=== PATIENT | female | born 1975 | race Caucasian/White ===

== ENCOUNTER → 2024-06-03 06:36 | Day surgery (SDC) | payer BC, SELFPAY | LOC: GI 06:36 | PROVIDERS: ATTENDING PHYSICIAN Internal Medicine Gastroenterology; FAMILY PHYSICIAN Family Medicine | DX: Z12.11 Encounter for screening for malignant neoplasm of colon (principal); K64.8 Other hemorrhoids | CPT/HCPCS: G0121 ==

== ENCOUNTER 2024-10-16 16:46 | Observation (INO) | payer BC, SELFPAY ==
[2024-10-16 10:20] VITALS: BP 129/77
--- NOTE | 2024-10-16 10:27 | ED.GENMED ---
History of Present Illness
<Aleah Chicas PA-C - Last Filed: 10/16/24 17:43>
General
Chief Complaint: Dizziness
Source: patient
Exam Limitations: none
Time Seen by Provider: 10/16/24 10:26
Nursing documentation reviewed up to this point in time: agreed with
History of Present Illness
History of Present Illness:
This is a 49-year-old female with past medical history of hyperlipidemia, and Zepbound for weight loss presents emergency department today with concerns of multiple presyncopal episodes and left-sided abdominal pain for the past week. Patient
states that she works at the [employer] in town and was walking up the hill to go to work today when she got a onset of lightheadedness, feeling flushed, and feeling like she is going to fall faint. Patient went inside to work and sat down at her
desk, thinking the symptoms would resolve however she states that the symptoms persisted and she had intermittent episodes where she felt like she has been a coffee. She never actually syncopized. She did not fall and hit her head. She denies any
headache or neck pain. Denies any numbness or tingling of bilateral upper or lower extremities. Denies any fevers or chills. She states that she has had some shortness of breath during the lightheadedness episode but currently is not short of
breath. She denies palpitations. Denies pack pain. She has no past abdominal surgical history. She denies any burning with urination any blood in her stools any diarrhea, any constipation. She denies any changes to her appetite.
Past History
<Aleah Chicas PA-C - Last Filed: 10/16/24 17:43>
Past History
ED Past Medical History: None
ED Past Surgical History: None
Social History
Tobacco: Non-smoker
Alcohol: None
Drug: None
Personal:
Living: with family
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
Family History
Family History: Other (Noncontributory)
Review of Systems
<Aleah Chicas PA-C - Last Filed: 10/16/24 17:43>
Review of Systems
All Other Systems: ROS reviewed and negative except as documented in HPI and ROS
Phy Exam
<Aleah Chicas PA-C - Last Filed: 10/16/24 17:43>
Physical Exam
Physical Exam:
General: Patient is well appearing and in no acute distress; non-toxic
Skin: Warm and dry, no rashes or lesions
Head: Normocephalic, atraumatic
Eyes: Sclera non-icteric. EOMs intact.
Cardiac: Tachycardia otherwise regular rhythm, no murmurs
Peripheral Vascular: No lower extremity swelling or edema
Pulm: Normal respiratory effort, no wheezes, rales, rhonchi
Abdomen: Tenderness to palpation of the left lower quadrant with guarding no rebound tenderness to palpable abdominal masses
Neuro: CN II-XII intact, no focal neurologic deficits.
Psychiatric: Appropriate mood and affect.
Course
<Aleah Chicas PA-C - Last Filed: 10/16/24 17:43>
Orders/Labs/Results
Orders:
Orders
10/16/24 09:41
Electrocardiogram (*1) Urgent
Reason for Study: Vertigo / Dizzy
EKG- Treatment ONCE
10/16/24 Lunch
Clear Liquid
10/16/24 10:45
CT Abd/pelvis W Iv Cont Urgent
Comment:
Reason For Exam: LLQ pain
Test Result ONCE
10/16/24 11:00
Cardiac Monitoring- Treatment ONCE
10/16/24 11:01
IV Insert/Care/Rem.- Treatment PRN
10/16/24 11:17
Type+Screen Urgent
Complete Blood Count/With Diff Urgent
Comprehensive Metabolic Panel Urgent
D-Dimer Urgent
HCG, Serum Qualitative Screen Urgent
Comment: ADD
Lipase Urgent
, Urine Qualitative Screen [HCG, Urine Qualitative Screen] Urgent
Date Specimen was Collected: 10/16/24
Time Specimen was Collected: 11:07
Urinalysis Reflex To Culture Urgent
Date Specimen was Collected: 10/16/24
Time Specimen was Collected: 11:08
10/16/24 11:22
0.9% Sodium Chloride 1000 ml [Nss] 1,000 ml IV BOLUS
10/16/24 11:38
ABO2 Urgent
BBK Wristband Number:
Associate notified that ABO2 has been ordered: [id number]
Date: 10/16/24
Time: 11:26
Monitor Car Operator ID: [id number]
10/16/24 12:04
Add On- LAB Urgent
Tests Added?: hcg qual blood
10/16/24 15:02
Ketorolac [Toradol] 15 mg IV NOW STA
10/16/24 15:15
Ampicillin/Sulbactam 3 G [Unasyn] 3 gm 0.9% Sodium Chloride 100 ml [Nss] 100 ml IV NOW
10/16/24 15:57
Echo 2D MMode Color/Doppler [Echo 2D MMode Color/Doppler] Routine
Reason for Study: recurrent pre-syncope
10/16/24 16:33
Admit/Transfer Patient As Directed
Co-Sign Provider:
Level of Care: Observation services
Assign to:: Telemetry
Physician / Group: Chelly meza
Diagnosis: pre-syncope
Reason for Telemetry: Syncope
Date to Stop Telemetry: 10/18/24
Time to Stop Telemetry: 11:00
PRN Pain Medication Management As Directed
May give lesser potent ordered pain med per pt: Yes
preference::
Protocol:: Medication orders for pain may be administered in a
manner that supports deferring to patient preference
when the pt is:
- Requesting an ordered lesser potent pain medication.
Least to most potent pain medications are defined
as: acetaminophen < NSAID < tramadol < opioids
(morphine, oxycodone, hydromorphone).
- Requesting a lesser dose of the same medication IF
ORDERED.
- Requesting a less intrusive route of administration
if both routes are prescribed by the provider (PO <
IV).
10/16/24 16:35
Code Status As Directed
Resuscitation Status: Full Code
10/18/24 11:00
DC Protocol for Telemetry ONCE
Abnormal Lab Results
10/16/24
11:17
WBC 13.0 H 10^3/uL
(4.8-10.8)
MPV 10.5 H fL
(7.4-10.4)
Absolute Neuts (auto) 10.8 H 10^3/uL
(1.4-6.5)
Absolute Monos (auto) 0.9 H 10^3/uL
(0.1-0.6)
Neutrophils % 82.9 H %
(42.2-75.2)
Lymphocytes % 8.9 L %
(20.5-51.1)
Glucose 100 H mg/dl
(70-99)
Urine Ketones 1+ A
(Negative)
10/16/24 11:17
10/16/24 11:17
Vital Signs
Initial and Last Documented VS:
Initial Vital Signs
Temp Pulse Resp Pulse Ox
97.5 F 97 20 100
10/16/24 09:41 10/16/24 09:41 10/16/24 09:41 10/16/24 09:41
Last Documented Vital Signs
Temp Pulse Resp BP Pulse Ox
97.5 F 96 21 117/68 99
10/16/24 09:41 10/16/24 14:30 10/16/24 14:30 10/16/24 13:00 10/16/24 14:30
<Kendall Traore MD - Last Filed: 10/16/24 11:08>
Orders/Labs/Results
Orders:
Orders
10/16/24 09:41
Electrocardiogram (*1) Urgent
Reason for Study: Vertigo / Dizzy
EKG- Treatment ONCE
10/16/24 Lunch
Clear Liquid
10/16/24 10:45
CT Abd/pelvis W Iv Cont Urgent
Comment:
Reason For Exam: LLQ pain
Test Result ONCE
10/16/24 11:00
Cardiac Monitoring- Treatment ONCE
10/16/24 11:01
IV Insert/Care/Rem.- Treatment PRN
10/16/24 11:17
Type+Screen Urgent
Complete Blood Count/With Diff Urgent
Comprehensive Metabolic Panel Urgent
D-Dimer Urgent
HCG, Serum Qualitative Screen Urgent
Comment: ADD
Lipase Urgent
, Urine Qualitative Screen [HCG, Urine Qualitative Screen] Urgent
Date Specimen was Collected: 10/16/24
Time Specimen was Collected: 11:07
Urinalysis Reflex To Culture Urgent
Date Specimen was Collected: 10/16/24
Time Specimen was Collected: 11:08
10/16/24 11:22
0.9% Sodium Chloride 1000 ml [Nss] 1,000 ml IV BOLUS
10/16/24 11:38
ABO2 Urgent
BBK Wristband Number:
Associate notified that ABO2 has been ordered: [id number]
Date: 10/16/24
Time: 11:26
Monitor Car Operator ID: [id number]
10/16/24 12:04
Add On- LAB Urgent
Tests Added?: hcg qual blood
10/16/24 15:02
Ketorolac [Toradol] 15 mg IV NOW STA
10/16/24 15:15
Ampicillin/Sulbactam 3 G [Unasyn] 3 gm 0.9% Sodium Chloride 100 ml [Nss] 100 ml IV NOW
10/16/24 15:57
Echo 2D MMode Color/Doppler [Echo 2D MMode Color/Doppler] Routine
Reason for Study: recurrent pre-syncope
10/16/24 16:33
Admit/Transfer Patient As Directed
Co-Sign Provider:
Level of Care: Observation services
Assign to:: Telemetry
Physician / Group: Chelly Pickens derrick
Diagnosis: pre-syncope
Reason for Telemetry: Syncope
Date to Stop Telemetry: 10/18/24
Time to Stop Telemetry: 11:00
PRN Pain Medication Management As Directed
May give lesser potent ordered pain med per pt: Yes
preference::
Protocol:: Medication orders for pain may be administered in a
manner that supports deferring to patient preference
when the pt is:
- Requesting an ordered lesser potent pain medication.
Least to most potent pain medications are defined
as: acetaminophen < NSAID < tramadol < opioids
(morphine, oxycodone, hydromorphone).
- Requesting a lesser dose of the same medication IF
ORDERED.
- Requesting a less intrusive route of administration
if both routes are prescribed by the provider (PO <
IV).
10/16/24 16:35
Code Status As Directed
Resuscitation Status: Full Code
10/18/24 11:00
DC Protocol for Telemetry ONCE
Abnormal Lab Results
10/16/24
11:17
WBC 13.0 H 10^3/uL
(4.8-10.8)
MPV 10.5 H fL
(7.4-10.4)
Absolute Neuts (auto) 10.8 H 10^3/uL
(1.4-6.5)
Absolute Monos (auto) 0.9 H 10^3/uL
(0.1-0.6)
Neutrophils % 82.9 H %
(42.2-75.2)
Lymphocytes % 8.9 L %
(20.5-51.1)
Glucose 100 H mg/dl
(70-99)
Urine Ketones 1+ A
(Negative)
10/16/24 11:17
10/16/24 11:17
Vital Signs
Initial and Last Documented VS:
Initial Vital Signs
Temp Pulse Resp Pulse Ox
97.5 F 97 20 100
10/16/24 09:41 10/16/24 09:41 10/16/24 09:41 10/16/24 09:41
Last Documented Vital Signs
Temp Pulse Resp BP Pulse Ox
97.5 F 96 21 117/68 99
10/16/24 09:41 10/16/24 14:30 10/16/24 14:30 10/16/24 13:00 10/16/24 14:30
Adamlt;Aleah Chicas PA-C - Last Filed: 10/16/24 17:43>
MDM/Problems Addressed
Differential Diagnosis Includes:
ddx include vasovagal syncope, PE, ectopic , diverticulitis, dysrhythmia, electrolyte derangement
MDM/Problems Addressed:
This is a 49-year-old female with past medical history of hyperlipidemia, and Zepbound for weight loss presents emergency department today with concerns of multiple presyncopal episodes and left-sided abdominal pain for the past week. Patient was
found to have diverticulitis. Patient did not have pain at the time of the presyncopal episodes and multiple episodes occurred even at rest. Considering no clear etiology or trigger to these episodes, admit patient for observation overnight.
Discussed with hospitalist.
Chronic conditions affecting care:
hlp, htn
<Aleah Chicas PA-C - Last Filed: 10/16/24 17:43>
*Pulse Oximetry
Patient hypoxic: no
*EKG
Interpreted by ED Provider?: Yes
EKG Intrepretation Date: 10/16/24
Interpretation: abnormal
Heart Rate: 101
*Critical Care Note
Total Time (30-74mins, 75-104mins- exclusive of procedures): Not Applicable
ED Attending Note
<Aleah Chicas PA-C - Last Filed: 10/16/24 17:43>
-
Portions of this chart may have been created with voice recognition software.� Occasional wrong word or��sound alike� substitutions may have occurred due to the inherent limitations of voice recognition software.
<Kendall Traore MD - Last Filed: 10/16/24 11:08>
ED Attending Note
Patient seen and examined by attending physician: Yes
I performed the substantive portion of visit, reviewed & personally made and approve the management plan that is documented in note by myself or LIVIA.: Yes
ED Attending Note:
49-year-old female multiple episodes of near syncope going to work today. No abdominal pain at that time. She has had 2 to 3 days of abdominal pain however mostly left-sided. Or left lower quadrant. She still has pain on palpation but no obvious
pain at rest. Has had a regular menses for a while. Last period was the end of August. Denies urinary symptoms change in bowels or other complaints.
On exam patient is nontoxic warm and dry perfusing well.
No respiratory distress. Heart borderline tachycardic. Regular. No murmur. Abdomen soft but moderate tenderness left lower quadrant. No rebound or guarding no mass or hernia. Nonfocal
Large differential with recurrent near syncope and left lower quadrant pain. Considerations would be ectopic, ruptured cyst, recurrent vasovagal syncope although less likely.
Discharge Plan
Departure
Patient Disposition: Admit
Date of Disposition: 10/16/24
Time of Disposition: 15:12
Admit to: Med/Surg
Presentation/result/management discussed w/ accepting MD/DO: Hospitalist
Discharge Problem:
Pre-syncope, Diverticulitis
Interventions
Interventions:
*Risk Screen - Suicide Last Done: 10/16/24 09:41
*General Assessment Last Done: 10/16/24 09:41
*Neglect/Abuse Screening Last Done: 10/16/24 09:41
*ED COVID-19 Vaccine History Last Done: 10/16/24 14:01
ED- Neurological Assessment Last Done: 10/16/24 14:02
[2024-10-16 11:15] VITALS: BP 141/81
[2024-10-16] MEDS: NSS 1000 IV ×2 (11:22→22:14)
[2024-10-16 11:28] LABS: % Basophils 0.6 % (0-2); % Eosinophils 0.3 % (0-6); % Immature Granulocytes 0.2 % (0-0.5); % Lymphocytes 8.9 % (20.5-51.1); % Monocytes 7.1 % (1.7-9.3); % Neutrophils 82.9 % (42.2-75.2); Absolute Basophils 0.1 10^3/uL (0-0.2); Absolute Lymphocytes 1.2 10^3/uL (1.2-3.4); Absolute Monocytes 0.9 10^3/uL (0.1-0.6); Absolute Neutrophils 10.8 10^3/uL (1.4-6.5); Hematocrit 42.2 % (37.0-47.0); Hemoglobin 14.6 g/dL (12.0-16.0); Mean Corp Hgb Conc. 34.6 g/dL (33.0-37.0); Mean Corpuscular Hgb 29.3 pg (27.0-31.0); Mean Corpuscular Volume 84.6 fL (81.0-99.0); Mean Platelet Volume 10.5 fL (7.4-10.4); Nucleated Red Blood Cells % 0 %; Platelet Count 285 10^3/uL (130-400); Red Blood Cell Count 4.99 10^6/uL (4.20-5.40); Red Cell Dist. Width 11.9 % (11.5-14.5)
[2024-10-16 11:30] LABS: Urine Albumin Negative (Neg - Trace); Urine Bilirubin Negative (Negative); Urine Character Clear (Clear); Urine Glucose Negative (Negative); Urine Ketone 1+ (Negative); Urine Leukocyte Negative (Negative); Urine Nitrite Negative (Negative); Urine Occult Blood Negative (Negative); Urine Urobilinogen Negative (Neg - 1+)
[2024-10-16 11:31] LABS: Urine Color Straw
[2024-10-16 11:36] LABS: HCG, Urine Qualitative Screen Negative
[2024-10-16 11:43] LABS: ALT (SGPT) 21 U/L (0-35); AST (SGOT) 23 U/L (14-36); Albumin 4.7 g/dl (3.5-5.0); Alkaline Phosphatase 69 U/L (38-126); Blood Urea Nitrogen 11 mg/dl (7-17); Calcium 9.2 mg/dl (8.4-10.2); Carbon Dioxide 28 mmol/L (22-30); Chloride 104 mmol/L (98-107); Glucose 100 mg/dl (70-99); Lipase 107 U/L (23-300); Potassium 4.2 mmol/L (3.5-5.1); Sodium 143 mmol/L (135-145); Total Bilirubin 0.7 mg/dl (0.2-1.3); Total Protein 7.7 g/dl (6.3-8.2); eGFR > 60.00
[2024-10-16 11:47] LABS: D-Dimer 0.37 ug/mlFEU (0.00-0.50)
[2024-10-16 12:00] VITALS: BP 117/71
[2024-10-16 12:55] LABS: HCG, Serum Qualitative Screen Negative
[2024-10-16 13:00] VITALS: BP 117/68
[2024-10-16 13:44] VITALS: BMI 32.5
--- NOTE | 2024-10-16 16:23 | HPS.HSE ---
Family Physician
-
Family Physician: Saroj Mata
Chief Complaint
-
abd pain, pre-syncope
History of Present Illness
49 y/o F with hx of HLD presents to ER with pre-syncope events x 2. Patient works at [employer] and today felt lightheaded when walking up the inclined ramp. She stopped, rested and it got better. Later when standing from a chair, she also felt
lightheadedness and had a sensation of nearly passing out. Neither episode was associated with palpitations, chest pain or sob. She does endorse 1 week of LLQ pain without any GI bleed, nausea/vomiting or diarhea (last BM today, normal). in ER, her
EKG showed sinus tachycardia and labs were normal, CT showed acute diverticulitis. Patient was admitted for observation.
Medical History
Past Medical History
Past Medical History: Reports Hypercholesterolemia
Past Surgical History: Reports None
Social History
Tobacco: Non-smoker
Alcohol: Occasional
Drug: None
Personal:
Living: With Family
Employment: Employed
Family History
Family History: Not pertinent
Allergies / Home Medications
Allergies reflects when Allergies were last updated in [facility].
Home Medications with original date entered in [facility]
Allergy/Medication List:
Allergies
Allergy/AdvReac Type Severity Reaction Status Date / Time
dextromethorphan Allergy Unknown modulRmelva and Verified 10/16/24 09:45
[From Mucinex DM] skin felt
like it
was on
fire.
guaifenesin [From Mucinex DM] Allergy Unknown [facility] and Verified 10/16/24 09:45
skin felt
like it
was on
fire.
levofloxacin [From Levaquin] Allergy Unknown muscle pain Verified 10/16/24 09:45
Home Medications
rosuvastatin 10 mg tablet (Crestor) 10 mg PO QPM 10/16/24
tirzepatide (weight loss) 5 mg/0.5 mL subcutaneous pen injector (Zepbound) 5 mg SC RUFFIN 10/16/24
Review of Systems
-
A 12 point ROS was completed and negative except as noted: Yes
Physical Exam
Vital Signs
Vital Signs
Temp Pulse Resp BP Pulse Ox
97.5 F 96 21 117/68 99
10/16/24 09:41 10/16/24 14:30 10/16/24 14:30 10/16/24 13:00 10/16/24 14:30
Physical Exam
General: No Apparent Distress
HEENT: NormoCephalic and Anicteric
Respiratory: No Wheezes or Rales
Cardiac: S1/S2 and Regular Rhythm
GI: Soft, Non Distended and Tender (LLQ)
Neuro: AO x 3
Hematologic/Lymphatic: No Lymphadenopathy
Psych: Calm
Laboratory Results
-
10/16/24 11:17
10/16/24 11:17
Laboratory Results
Total Bilirubin 0.7 mg/dl (0.2-1.3) 10/16/24 11:17
AST 23 U/L (14-36) 10/16/24 11:17
ALT 21 U/L (0-35) 10/16/24 11:17
Alkaline Phosphatase 69 U/L (38-126) 10/16/24 11:17
Lipase 107 U/L (23-300) 10/16/24 11:17
Data Reviewed
-
CT Scan: Report Reviewed by me
Lab Data: Labs Reviewed by me
Impression/Plan
-
Assessment:
Pre-syncope x 2
- with concurrent diverticulitis, likely vagal mediated, could also be orthostatic hypotension
- check orthostatics
- check Echo; does have family history of early CAD
- monitor on tele x 24 hours
Acute diverticulitis
- CT: There is focal stranding and edema along the distal descending/proximal sigmoid colon consistent with uncomplicated acute diverticulitis/colitis.
- IV Unasyn, day 1
- clears
- pain control, anti-emetics
HLD
Obesity
- hold Statin, hold Zepbound
DVT ppx: SCDs
Code: Full
[2024-10-16] MEDS: UNASYN IV ×2 (16:31→22:13)
[2024-10-16] MEDS: TORADOL 15 MG IV (16:31)
[2024-10-16 21:06] VITALS: BMI 29.4
[2024-10-16 21:25] VITALS: BP 130/82
[2024-10-17 00:03] VITALS: BP 121/76
[2024-10-17 03:26] VITALS: BP 128/76
[2024-10-17] MEDS: TORADOL 10 MG IV (03:39)
[2024-10-17] MEDS: UNASYN IV ×2 (03:40→09:59)
[2024-10-17 06:54] VITALS: BMI 29.3
[2024-10-17 07:15] VITALS: BP 117/66
[2024-10-17 07:31] LABS: % Basophils 0.7 % (0-2); % Eosinophils 1.8 % (0-6); % Immature Granulocytes 0.3 % (0-0.5); % Lymphocytes 23.3 % (20.5-51.1); % Monocytes 9.1 % (1.7-9.3); % Neutrophils 64.8 % (42.2-75.2); Absolute Basophils 0.1 10^3/uL (0-0.2); Absolute Eosinophils 0.1 10^3/uL (0-0.7); Absolute Lymphocytes 1.7 10^3/uL (1.2-3.4); Absolute Monocytes 0.6 10^3/uL (0.1-0.6); Absolute Neutrophils 4.6 10^3/uL (1.4-6.5); Hematocrit 39.7 % (37.0-47.0); Hemoglobin 13.5 g/dL (12.0-16.0); Mean Corpuscular Hgb 29.2 pg (27.0-31.0); Mean Corpuscular Volume 85.7 fL (81.0-99.0); Mean Platelet Volume 10.6 fL (7.4-10.4); Nucleated Red Blood Cells % 0 %; Platelet Count 262 10^3/uL (130-400); Red Blood Cell Count 4.63 10^6/uL (4.20-5.40); Red Cell Dist. Width 12.1 % (11.5-14.5); White Blood Cell Count 7.1 10^3/uL (4.8-10.8)
[2024-10-17 08:04] LABS: ALT (SGPT) 17 U/L (0-35); AST (SGOT) 20 U/L (14-36); Alkaline Phosphatase 62 U/L (38-126); Blood Urea Nitrogen 9 mg/dl (7-17); Calcium 8.1 mg/dl (8.4-10.2); Carbon Dioxide 26 mmol/L (22-30); Chloride 106 mmol/L (98-107); Estimated Creatinine Clearance > 125 ml/min; Glucose 89 mg/dl (70-99); Potassium 3.8 mmol/L (3.5-5.1); Sodium 140 mmol/L (135-145); Total Bilirubin 0.8 mg/dl (0.2-1.3); Total Protein 6.7 g/dl (6.3-8.2); eGFR > 60.00
[2024-10-17 11:10] VITALS: BP 113/74
[2024-10-17 11:41] VITALS: BP 137/81; BP 153/80; BP 153/82; PULSE 81; PULSE 84
--- NOTE | 2024-10-17 11:54 | W.PN.HOSP.TC ---
Today's Communication/Plan
-
dc to home
Assessment / Plan
Assessment / Plan
Assessment:
Pre-syncope x 2
- with concurrent diverticulitis, likely vagal mediated, could also be orthostatic hypotension
- orthostatics negative
- Echo: unremarkable. No events on tele
Acute diverticulitis
- CT: There is focal stranding and edema along the distal descending/proximal sigmoid colon consistent with uncomplicated acute diverticulitis/colitis.
- discharge on Augmentin x 10 days
- LRD at discharge (education provided)
HLD
Obesity
- resume Statin, hold Zepbound
DVT ppx: SCDs
Code: Full
More than 30 minutes spent in discharge including
Final examination of the patient
Summarizing hospital stay
Instructions for continuing care to all relevant caregivers
Preparation of discharge records, prescriptions, and referral forms
Total time spent (in minutes): 41
Anticipated Discharge: Today
Subjective/Interval History
-
Date of Service: October 17, 2024
pain improving
tolerating CLD
Objective Data
-
Labs:
Laboratory Results
10/17/24
07:10
WBC 7.1
Hgb 13.5
Hct 39.7
Plt Count 262
Sodium 140
Potassium 3.8
Chloride 106
Carbon Dioxide 26
BUN 9
Creatinine 0.5 L
Glucose 89
Calcium 8.1 L
Total Bilirubin 0.8
AST 20
ALT 17
Alkaline Phosphatase 62
Vital Signs:
Vital Signs
Temp Pulse Resp BP Pulse Ox
98.6 F 83 17 113/74 98
10/17/24 11:10 10/17/24 11:10 10/17/24 11:10 10/17/24 11:10 10/17/24 11:10
I&O
10/16/24 10/17/24 10/18/24
06:59 06:59 06:59
Intake Total 1000 / 1000
Balance 1000 / 1000
Physical Exam
-
General: No Apparent Distress
HEENT: Normocephalic and Atraumatic
Respiratory: Negative Wheezes
Cardiac: Regular Rhythm and S1/S2
Genito-urinary: No Costovertebral Tender
Neuro: AO x 3
Psych: Calm
Data Reviewed
-
Total Time Spent with Patient (in minutes): 42
Labs: Labs Reviewed by me
--- NOTE | 2024-10-17 11:59 | W.DS.TRANS ---
DC Summary - [facility]ring Tender
-
Discharge Instructions:
Discharge Diagnosis/Procedures acute diverticulitis, pre-syncope
Diet Low Residue
Additional Diets x 1 week then regular diet
Activity As tolerated
Instructions:
Stand-Alone Forms:
Changes to Home Medications: No
Discharge Medications:
DC Medications w/original date entered in [facility]
rosuvastatin 10 mg tablet (Crestor) 10 mg PO QPM High Cholesterol 10/16/24
amoxicillin 875 mg-potassium clavulanate 125 mg tablet 1 tab PO BID #20 tabs 10/17/24
polyethylene glycol 3350 17 gram oral powder packet 17 g PO DAILY #30 ea 10/17/24
Home Medication Changes
Pending Results: No
Total time spent discharging patient (in min): 41
== END 2024-10-17 13:53 | disposition home or self-care (01) ==
LOC: 3 WEST ACU 16:46
PROVIDERS: Physician Assistant; ADMITTING PHYSICIAN Internal Medicine; EMERGENCY PHYSICIAN Emergency Medicine; FAMILY PHYSICIAN Family Medicine
DX: R42 Dizziness and giddiness (principal); K57.32 Diverticulitis of large intestine without perforation or abscess without bleeding; R23.2 Flushing; R55 Syncope and collapse; R10.32 Left lower quadrant pain; R00.0 Tachycardia, unspecified; R60.9 Edema, unspecified; E78.00 Pure hypercholesterolemia, unspecified; E66.9 Obesity, unspecified; I10 Essential (primary) hypertension; Z88.1 Allergy status to other antibiotic agents; Z88.8 Allergy status to other drugs, medicaments and biological substances; Z82.49 Family history of ischemic heart disease and other diseases of the circulatory system; Z68.29 Body mass index [BMI] 29.0-29.9, adult; Z79.85 Long-term (current) use of injectable non-insulin antidiabetic drugs
CPT/HCPCS: 74177; 80053; 81003; 81025; 83690; 84703; 85025; 85379; 86850; 86900; 86901; 93005; 93306; 96361; 96365; 96375; 99285; G0378; Q9967

== ENCOUNTER → 2024-11-18 17:19 | Outpatient (REF) | payer BC, SELFPAY | LOC: RAD 17:19 | PROVIDERS: ATTENDING PHYSICIAN Family Medicine | DX: R05.1 Acute cough (principal) | CPT/HCPCS: 71046 ==

== ENCOUNTER 2024-11-19 17:50 | Inpatient (IN) | payer BC, SELFPAY ==
[2024-11-19] VITALS (9 sets, daily range): BP systolic 108–147; BP diastolic 65–90; BMI 26.8; BMI 27.5
[2024-11-19 12:36] LABS: Blood Urea Nitrogen 8 mg/dl (7-17); Calcium 8.9 mg/dl (8.4-10.2); Carbon Dioxide 29 mmol/L (22-30); Chloride 98 mmol/L (98-107); Estimated Creatinine Clearance 109 ml/min; Glucose 115 mg/dl (70-99); Magnesium 2.2 mg/dl (1.6-2.3); Potassium 3.8 mmol/L (3.5-5.1); Sodium 139 mmol/L (135-145); eGFR > 60.00
[2024-11-19] MEDS: TESSALON PERLES 200 MG PO (12:47)
[2024-11-19] MEDS: TORADOL 15 MG IV (12:47)
[2024-11-19] MEDS: DUONEB 3 ML INH (12:48)
[2024-11-19] MEDS: NSS 1000 IV (12:48)
[2024-11-19 12:50] LABS: D-Dimer 0.63 ug/mlFEU (0.00-0.50)
--- NOTE | 2024-11-19 12:59 | ED.GENMED ---
History of Present Illness
General
Chief Complaint: Breathing Problem
Source: patient
Exam Limitations: none
Time Seen by Provider: 11/19/24 11:05
Nursing documentation reviewed up to this point in time: agreed with
History of Present Illness
History of Present Illness:
Patient presents to ED secondary to 5-day history of persistent cough, shortness of breath, and decreased appetite. Patient was started on Zithromax last night, after chest x-ray revealed likely pneumonia. Denies chest pain. Denies back pain.
Denies leg pain or swelling. Denies recent travel or surgery. Denies nausea, vomiting, or diarrhea. Denies headache. Patient reports fever, which now has resolved over the past 24 hours. Patient states that in 2018, she had similar episode,
when she was admitted and treated for pneumonia. Patient reports multiple COVID testing at home that were negative.
Past History
Past History
ED Past Medical History: None
ED Past Surgical History: None
Social History
Tobacco: Non-smoker
Alcohol: None
Drug: None
Personal:
Living: with family
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
Family History
Family History: Other (Noncontributory)
Review of Systems
Review of Systems
Allergies reviewed?: Yes
All Other Systems: ROS reviewed and negative except as documented in HPI and ROS
Constitutional: Reports no symptoms
Respiratory: Reports cough and trouble breathing
Cardiac: Reports no symptoms
ABD/GI: Reports no symptoms; Denies vomiting or diarrhea
Musculoskeletal: Reports no symptoms
Skin: Reports no symptoms
Neurological: Reports weakness; Denies dizzy or headache
Phy Exam
Physical Exam
Physical Exam:
Physical Exam
General: no apparent distress, not acutely ill. afebrile
Head: nc/at. eomi
Neck: supple. no meningeal signs. normal posterior pharynx
Heart: s1/s2 regular rate and rhythm, no murmur.
Lungs: no acute respiratory distress. rhonchi bilaterally
Abdomen: normal bowel sounds. not tender.
Neuro: alert and oriented x 3. no focal neurological deficits
Skin: no rash
Psychiatric: well kept. interactive and cooperative
Extremities: no edema. no calf tenderness.
Scores
Heart Failure Risk
Heart Failure Risk Score: Not Applicable
Course
Orders/Labs/Results
Orders:
Orders
11/19/24 12:02
Basic Metabolic Panel Urgent
Complete Blood Count/With Diff Urgent
D-Dimer Urgent
HCG, Serum Qualitative Screen Urgent
Magnesium Urgent
Manual Differential Urgent
11/19/24 12:36
0.9% Sodium Chloride 1000 ml [Nss] 1,000 ml IV BOLUS
Ipratropium/Albuterol Sulfate [Duoneb] 3 ml INH R NOW STA
Ketorolac [Toradol] 15 mg IV NOW STA
11/19/24 12:37
Benzonatate [Tessalon Perles] 200 mg PO NOW STA
11/19/24 14:08
CT Chest PE Study Urgent
Comment:
Reason For Exam: sob w elevated d-dimer
11/19/24 Dinner
Cholesterol Lowering
At Your Request: Full Participation
Cholesterol Lowering: Sodium, 2 Gram
11/19/24 15:36
CefTRIAXone [Rocephin] 1,000 mg IV NOW STA
11/19/24 16:14
Azithromycin [Zithromax] 250 mg 0.9% Sodium Chloride 250 ml [Nss] 250 ml IV NOW
Sterile Water [Sterile Water For Injection] 10 ml .ROUTE .[facility]
11/19/24 17:06
COVID-19 Antigen Routine
Source: Nasal Swab
Influenza A+B Rapid Molecular Routine
ANANYA Source: Nasal Swab
Specimen Description:
11/19/24 17:34
Admit/Transfer Patient As Directed
Co-Sign Provider:
Level of Care: Inpatient admission
Assign to:: Medical/Surgical
Physician / Group: Yimi Krishna
Diagnosis: pneumonia
Reason for Hospitalization: pneumonia
Expected length of stay greater than two midnights?: Yes
ELOS- Estimated Length of Stay in days: 2
I certify the patient meets the requirements for IP care: Yes
11/19/24 17:35
PRN Pain Medication Management As Directed
May give lesser potent ordered pain med per pt: Yes
preference::
Protocol:: Medication orders for pain may be administered in a
manner that supports deferring to patient preference
when the pt is:
- Requesting an ordered lesser potent pain medication.
Least to most potent pain medications are defined
as: acetaminophen < NSAID < tramadol < opioids
(morphine, oxycodone, hydromorphone).
- Requesting a lesser dose of the same medication IF
ORDERED.
- Requesting a less intrusive route of administration
if both routes are prescribed by the provider (PO <
IV).
11/19/24 17:36
Code Status As Directed
Resuscitation Status: Full Code
11/19/24 18:34
Benzonatate [Tessalon Perles] 200 mg PO TIDPRN PRN
Ipratropium/Albuterol Sulfate [Duoneb] 3 ml INH R Q4HPRN PRN
Ondansetron Injectable [Zofran] 4 mg IV Q6HPRN PRN
11/19/24 18:34
Respiratory Culture/Gram Stain Urgent
ANANYA Source: Sputum
Specimen Description:
Activity As Directed
Activity Level: Out of Bed-Early Mobility
Intake/ Output As Directed
Frequency: Per unit guidelines
Vital Signs As Directed
Frequency: Per unit guidelines
Weight As Directed
Frequency: Once
Comment: on admission
DX Deep Vein Thrombosis Video Routine
11/20/24 05:19
Complete Blood Count/No Diff IN AM
11/20/24 08:00
Saccharomyces Boulardii [Florastor] 500 mg PO DAILY
11/20/24 12:00
Rosuvastatin Calcium [Crestor] 10 mg PO NOON
11/20/24 16:00
Azithromycin 500 mg/250 ml [Zithromax Infusion] 500 mg in 250 ml IV Q24H
CefTRIAXone [Rocephin] 1,000 mg IV Q24H
11/20/24 18:00
Enoxaparin Sodium [Lovenox] 40 mg SC QPM
Abnormal Lab Results
11/19/24
12:02
Lymphocytes (Manual) 11 L %
(20-51)
Monocytes (Manual) 13 H %
(2-9)
D-Dimer 0.63 H ug/mlFEU
(0.00-0.50)
Glucose 115 H mg/dl
(70-99)
11/19/24 12:02
11/19/24 12:02
Vital Signs
Initial and Last Documented VS:
Initial Vital Signs
Temp Pulse Resp BP Pulse Ox
98.4 F 110 18 147/90 96
11/19/24 10:10 11/19/24 10:10 11/19/24 10:10 11/19/24 10:10 11/19/24 10:10
Last Documented Vital Signs
Temp Pulse Resp BP Pulse Ox
98.9 F 92 16 113/75 96
11/20/24 15:39 11/20/24 15:39 11/20/24 15:39 11/20/24 15:39 11/20/24 15:39
MDM/Problems Addressed
MDM/Problems Addressed:
D-dimer elevated. Will CTA PE study and reassess afterwards
*Critical Care Note
Total Time (30-74mins, 75-104mins- exclusive of procedures): Not Applicable
ED Attending Note
-
Portions of this chart may have been created with voice recognition software.� Occasional wrong word or��sound alike� substitutions may have occurred due to the inherent limitations of voice recognition software.
Discharge Plan
Departure
Patient Disposition: Admit
Date of Disposition: 11/19/24
Time of Disposition: 15:38
Presentation/result/management discussed w/ accepting MD/DO: Hospitalist
Discharge Problem:
Pneumonia
Interventions
Interventions:
*Risk Screen - Suicide Last Done: 11/19/24 10:10
*General Assessment Last Done: 11/19/24 10:10
*Neglect/Abuse Screening Last Done: 11/19/24 10:10
*ED COVID-19 Vaccine History Last Done: 11/19/24 18:36
*Nursing Disposition Last Done: 11/19/24 18:45
ED- Cardiac Assessment Last Done: 11/19/24 13:20
ED- Pulmonary Assessment Last Done: 11/19/24 13:20
Discharge Date and Time
Discharge Date/Time: 11/19/24 18:45
[2024-11-19 13:02] LABS: Band Neutrophils 1 % (0-3); Eosinophils 2 % (0-6); Hematocrit 41.8 % (37.0-47.0); Hemoglobin 14.7 g/dL (12.0-16.0); Lymphocytes 11 % (20-51); Mean Corp Hgb Conc. 35.2 g/dL (33.0-37.0); Mean Corpuscular Hgb 29.6 pg (27.0-31.0); Mean Corpuscular Volume 84.3 fL (81.0-99.0); Mean Platelet Volume 10.4 fL (7.4-10.4); Monocytes 13 % (2-9); Platelet Count 211 10^3/uL (130-400); Red Blood Cell Count 4.96 10^6/uL (4.20-5.40); Red Cell Dist. Width 12.7 % (11.5-14.5); Segmented Neutrophils 73 % (42-75); White Blood Cell Count 6.8 10^3/uL (4.8-10.8)
[2024-11-19 13:03] LABS: Normal RBC Morphology Yes; Platelets Checked Yes; Total Cells Counted 100
[2024-11-19 13:47] LABS: HCG, Serum Qualitative Screen Negative
[2024-11-19] MEDS: ROCEPHIN 1000 MG IV (16:28)
[2024-11-19] MEDS: ZITHROMAX 252.5 MG IV (16:28)
--- NOTE | 2024-11-19 16:42 | HPS.HSE ---
Family Physician
-
Family Physician: Saroj Mata
Chief Complaint
-
shortness of breath
History of Present Illness
Patient is a 49-year-old female with past medical history significant for hypercholesterolemia who presented to [facility] ED for evaluation of persistent cough, shortness of breath and decreased appetite for past 5 days. Patient reports
starting Augmentin last Sunday for cough and not feeling well. Yesterday she reports primary care added a z-pack for lack of improvement and CXR indicating likely pneumonia. This morning patient reports she started with shortness of breath with
conversation, notified her primary care physician and they instructed her to come to ED for further evaluation and treatment. Patient reports she has had 5 days of low-grade fevers, chills, non-productive cough, nausea and diarrhea (she believes is
from antibiotic use). Patient denies any vomiting or urinary complaints.
Medical History
Past Medical History
Past Medical History: Reports Other
Additional Past Medical History:
hypercholesterolemia
Past Surgical History: Reports Other
Additional Past Surgical History:
MOHS x2
Social History
Tobacco: Non-smoker
Alcohol: Occasional
Drug: None
Personal:
Living: With Family
Employment: Employed
Family History
Family History: Other (Mother: Hodgkin's lymphoma )
Allergies / Home Medications
Allergies reflects when Allergies were last updated in [employer].
Home Medications with original date entered in [employer]
Allergy/Medication List:
Allergies
Allergy/AdvReac Type Severity Reaction Status Date / Time
dextromethorphan Allergy gilbert and Verified 11/19/24 10:09
[From Mucinex DM] skin felt
like it
was on
fire.
guaifenesin [From Mucinex DM] Allergy gilbert and Verified 11/19/24 10:09
skin felt
like it
was on
fire.
levofloxacin [From Levaquin] Allergy muscle pain Verified 11/19/24 10:09
Home Medications
rosuvastatin 10 mg tablet (Crestor) 10 mg PO NOON High Cholesterol 10/16/24
amoxicillin 875 mg-potassium clavulanate 125 mg tablet 1 tab PO BID #20 tabs 10/17/24
Saccharomyces boulardii 250 mg capsule (Florastor) 500 mg PO DAILY 11/19/24
albuterol sulfate 90 mcg/actuation aerosol inhaler 2 puff inhalation R Q6HPRN PRN sob 11/19/24
azithromycin 250 mg tablet 250 mg PO HS 11/19/24
guar gum 0.33 tbsp PO DAILY 11/19/24
Review of Systems
-
History Source: Patient
Constitutional: Reports Fever, Fatigue and Chills
EENT: Reports No Symptoms
Respiratory: Reports Cough and Trouble Breathing
Cardiac: Reports No Symptoms
Abdomen/GI: Reports Nausea and Diarrhea
: Reports No Symptoms
Musculoskeletal: Reports No Symptoms
Skin: Reports No Symptoms
Neurological: Reports No Symptoms
Endocrine: Reports No Symptoms
Hematologic/Lymphatic: Reports No Symptoms
Psych: Reports No Symptoms
Physical Exam
Vital Signs
Vital Signs
Temp Pulse Resp BP Pulse Ox
98.4 F 89 13 122/65 100
11/19/24 10:10 11/19/24 14:00 11/19/24 14:00 11/19/24 14:00 11/19/24 14:00
Physical Exam
General: Well Developed, Well Nourished, No Apparent Distress, Comfortable and Conversant
HEENT: NormoCephalic, Moist mucous membranes, Atraumatic, [place] Conjunctivae, Nose Appears Normal and Ears Appear Normal
Respiratory: Rhonchi and Non Labored Respirations
Cardiac: S1/S2 and Regular Rhythm
GI: Soft, Non Tender, Non Distended and Normal Bowel Sounds; No Organomegaly
Rectal: Deferred by Provider
Genito-urinary: Deferred by me
Musculoskeletal: No Clubbing, No Cyanosis and No Edema
Skin: Warm and IV/Catheter Site
Neuro: Awake, Alert, AO x 3 and Nonfocal/grossly intact
Psych: Calm and Intact Judgment/Insight
Laboratory Results
-
11/19/24 12:02
11/19/24 12:02
Data Reviewed
-
CT Scan: Report Reviewed by me (Chest: see report )
Lab Data: Labs Reviewed by me (WBC 6.8, D-Dimer 0.63)
Impression/Plan
-
IMPRESSION/PLAN:
#pneumonia
WBC 6.8
D-Dimer: 0.[address]: No evidence of central pulmonary embolism.
Dense consolidation with some mild volume loss in the lingula with air bronchograms most likely representing pneumonia as well as some left hilar lymphadenopathy. CENTRAL MALIGNANCY IN THE
medial left lung/hilum cannot be excluded. HIGHLY RECOMMEND short-term follow-up Chest CT with IV contrast to confirm resolution of presumed pneumonia and presumed inflammatory/infectious
left hilar lymphadenopathy. Findings discussed by telephone with Dr. Deluca in the emergency department at 1518 hours on November 19, 2024.
Smaller patchy left lower lobe opacification suspicious for pneumonia/pneumonitis.
Tiny bilateral pleural effusions.
patient failed out patient antibiotic treatment
- Admit to med/surg
- IV antibiotics
- supportive care
#hypercholesterolemia
- continue rosuvastatin
Code status: Full code
DVT prophylaxis: Lovenox Sq
[2024-11-19 17:38] LABS: COVID-19 Antigen Negative (Negative)
--- NOTE | 2024-11-19 18:17 | W.PN.UPDATE ---
Update Note
Progress Note Update
This note serves as an addendum to the H&P by nuclear reactor engineer LIVIA Sinai Gamble
HPI
49F Non smoker HX HLD, prior HX PNA seen at ER:
- Persistent cough, shortness of breath and decreased appetite for past 5 days.
- on 7 days of Augmentin l for cough and not feeling well.
- Yesterday PCP added a z-pack for lack of improvement
- OP CXR indicating likely pneumonia.
- 5 days of low-grade fevers, chills, non-productive cough, nausea and diarrhea (she believes is from antibiotic use)
- SoB with conversation, notified her PCP and they instructed her to come to ED
ROS:
denies any vomiting or urinary complaints.
PHX; se above
Vital Signs
Temp Pulse Resp BP Pulse Ox
98.4 F 89 13 122/65 100
11/19/24 10:10 11/19/24 14:00 11/19/24 14:00 11/19/24 14:00 11/19/24 14:00
PE
Gen: not toxic
HEENT: anicteric
Neck: supple
Lungs: symmetric AE
Cor: RRR S1 S2
Abdomen: soft NT
AUTOMATIC WINDER OPERATOR: AAO3 NFND
MS: no edema
Psych: approriate
Data
Abnormal Lab Results
11/19/24
12:02
Lymphocytes (Manual) 11 L
Monocytes (Manual) 13 H
D-Dimer 0.63 H
Glucose [address] Chest PE Study
- No evidence of central pulmonary embolism.
- Smaller patchy left lower lobe opacification suspicious for pneumonia/pneumonitis.
- Dense consolidation with some mild volume loss in the lingula with air bronchograms most likely representing PNA
- some left hilar lymphadenopathy. CENTRAL MALIGNANCY IN THE medial left lung/hilum cannot be excluded.
- HIGHLY RECOMMEND short-term follow-up Chest CT with IV contrast to confirm resolution of presumed pneumonia and presumed inflammatory/infectious left hilar lymphadenopathy.
- Findings discussed by telephone with Dr. Deluca in the emergency department at 1518 hours on November 19, 2024.
- Tiny bilateral pleural effusions.
ASSESSMENT & PLAN
Persistent non productive cough and speech dyspnea
LLL PNA on PO Augmentin followed Z pack as OP since yesterday: afebrile, nl WCC
Lt hilar LAD: CTC suggest central malignancy in media Lt lung or Lt hilar cannot be excluded : Denied Wt loss
Adequate POx ; no O2 supplement required
- check PCT
- Empiric IV CFTZ & cont. PO Azitro
- Neb PRN
- CT Chest IV contrast tomorrow
- ID and Pul consult
HLD
- c/w Crestor
DVT Px: LMWH
Full code
IP MS
[2024-11-19 19:00] LABS: Procalcitonin < 0.05 ng/ml (0.0-0.25)
--- NOTE | 2024-11-19 19:19 | PTCARENOTE ---
Patient transferred from ED to [address] [place] [address], arriving around 1814. Patient walked from stretcher to bed. Reporting no pain. Patient oriented to the room and all questions answered. All needs met at this time.
[2024-11-19] MEDS: CRESTOR 10 MG PO (21:23)
[2024-11-20 06:00] VITALS: BMI 27.3
[2024-11-20 06:19] LABS: Hematocrit 35.1 % (37.0-47.0); Hemoglobin 12.2 g/dL (12.0-16.0); Mean Corp Hgb Conc. 34.8 g/dL (33.0-37.0); Mean Corpuscular Hgb 29.3 pg (27.0-31.0); Mean Corpuscular Volume 84.4 fL (81.0-99.0); Mean Platelet Volume 10.9 fL (7.4-10.4); Platelet Count 196 10^3/uL (130-400); Red Blood Cell Count 4.16 10^6/uL (4.20-5.40); Red Cell Dist. Width 12.8 % (11.5-14.5); White Blood Cell Count 5.5 10^3/uL (4.8-10.8)
[2024-11-20 07:24] VITALS: BP 118/75
[2024-11-20] MEDS: ZITHROMAX 500 MG PO (08:00)
[2024-11-20] MEDS: FLORASTOR 500 MG PO (08:54)
[2024-11-20] MEDS: TESSALON PERLES 200 MG PO ×3 (08:54→21:57)
--- NOTE | 2024-11-20 09:09 | CON.PUL ---
Consultation
Consultation Request
Date/Time Consultation Requested: 11/20
Date/Time Consultation Performed: 11/20
Reason for Consultation: Pneumonia, abnormal imaging
Medical History
-
History of Present Illness:
History obtained from the patient, reviewing inpatient records, history also obtained from at the bedside. Patient is a pleasant 49-year-old female with recently diagnosed diverticulitis and discharged from [facility] 10/17. At
that time she also had presyncopal symptoms, cardiac workup unremarkable. She was discharged on Augmentin for 10 days. Her abdominal discomfort resolved. She was doing okay up until about 11/14 when she developed mild dry cough. She then had
left-sided chest discomfort which she thought was her diverticulitis. She called her prior physician, started on Augmentin for few days then transition to Zithromax because of worsening cough, sweats, fevers. She had an outpatient chest x-ray
which confirmed pneumonia and was asked to come to [facility]. Upon arrival to the outside hospital, afebrile, pulse 110, breathing 18, blood pressure 147/90, 96%. Chest exam per ED record suggest rhonchi bilaterally. CT chest confirmed
pneumonia in the lingula. Patient admitted with IV antibiotics, ceftriaxone/azithromycin. We are asked to help from a pulmonary standpoint.
Since the last 24 hours, she feels improved. Left-sided chest discomfort has resolved. at bedside also states that the patient appears to be much more alert and stronger in conversation
Throughout this, she denies nausea, abdominal pain, blood in urine or stool. She has some mild loose stool which she thinks was from antibiotic therapy but no jessie diarrhea. She also had some mild presyncopal symptoms similar to her symptoms when
she was hospitalized for her diverticulitis but denies any falls. She denies any travel, sick contacts
The patient has intentional 15 pound weight loss over the past 3 months from dietary changes
.
PMH: Recent diverticulitis hospitalized October 2024, history of left-sided pneumonia 2018 hospitalized at [facility] not seen by pulmonary at that time). Patient was also(admitted as having bronchospasm at that time upon reviewing
records. History of basal cell skin cancer, hypercholesterolemia
Past Medical History
Past Medical History: None (See above)
Past Surgical History: None (See above)
Social History
Tobacco: Non-smoker
Alcohol: Occasional
Drug: None
Personal:
Living: With Family
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
Environmental Exposures: No mold exposure, wood-burning exposure. Dogs at home. No recent travel
Family History
[place] History: Other ([place]. 2 children healthy. 2 siblings healthy. Mother age 47 from Hodgkin's disease. Father alive with history of coronary disease, bypass/stent. Family history negative for blood clots, lung
cancer)
Allergies / Home Medications
Allergies
Allergy/AdvReac Type Severity Reaction Status Date / Time
dextromethorphan Allergy gilbert and Verified 11/19/24 10:09
[From Mucinex DM] skin felt
like it
was on
fire.
guaifenesin [From Mucinex DM] Allergy gilbert and Verified 11/19/24 10:09
skin felt
like it
was on
fire.
levofloxacin [From Levaquin] Allergy muscle pain Verified 11/19/24 10:09
Home Medications
�Medication �Instructions �Recorded �Confirmed �Last Taken �Type
rosuvastatin 10 mg tablet (Crestor) 10 mg PO NOON High Cholesterol 10/16/24 11/19/24 11/18/24 History
amoxicillin 875 mg-potassium 1 tab PO BID #20 tabs 10/17/24 11/19/24 11/19/24 Rx
clavulanate 125 mg tablet
Saccharomyces boulardii 250 mg 500 mg PO DAILY 11/19/24 11/19/24 11/19/24 History
capsule (Florastor)
albuterol sulfate 90 mcg/actuation 2 puff inhalation R Q6HPRN PRN sob 11/19/24 11/19/24 Unknown History
aerosol inhaler
azithromycin 250 mg tablet 250 mg PO HS 11/19/24 11/19/24 11/18/24 History
500 mg
guar gum 0.33 tbsp PO DAILY 11/19/24 11/19/24 11/19/24 History
Review of Systems
-
All other systems: Negative unless noted (Intentional 15 pound weight loss)
Vitals / Labs / Diagnostic Testing
Vital Signs
Temp Pulse Resp BP Pulse Ox
97.8 F 86 20 118/75 97
11/20/24 07:24 11/20/24 07:24 11/20/24 07:24 11/20/24 07:24 11/20/24 07:24
Lab Data
11/20/24 05:19
11/19/24 12:02
Microbiology
11/19/24 17:06 Nasal Swab Influenza Types A & B (CASA) - Final
Negative for Influenza A & B, NAAT
Negative results must be combined with clinical observations
and patient history.
Nucleic Acid Amplification test (NAAT)performed on the
[employer] platform.
Diagnostic Testing:
Physical Exam
-
HEENT: Normocephalic and Anicteric
Cardiovascular: S1/S2, Regular Rhythm, Murmur (n), Rub (n), Peripheral Edema (n) and Calf Tenderness (n)
Respiratory: Wheeze (n), Rales (Few left base), Rhonchi (n), Non-Labored Respirations and Other (Slight decreased left base)
GI: Soft, Non Distended and Non Tender
Neurology: Awake, Alert, Oriented and No Motor Deficits (Able to sit up without assistance)
Skin: Warm, Dry and Other (No rash, no clubbing, no cyanosis)
General: Comfortable
Assessment
-
49-year-old female with recent admission for acute diverticulitis, presyncope October 2024 with resolution of symptoms following Augmentin course, now presents with left chest discomfort, fevers, chills, sweats, cough and mild subjective dyspnea.
Patient was treated with 3 days of Augmentin then transition to Zithromax with no improvement, admitted with abnormal chest x-ray suggesting left-sided pneumonia confirmed on CT imaging. We are asked to comment on pulmonary process
Acute pneumonia, multi lobar pneumonia
Hospital acquired versus CAP given recent hospital stay
Left hilar adenopathy
PE study, negative for PE
Findings not present on abdominal imaging 10/16/2024 (my review), incompletely imaged
Fever/chills/night sweats
Did not respond to outpatient Augmentin/Zithromax
Recent hospital stay for diverticulitis discharged 10/17/2024
Completed 10 days of Augmentin
15 pound weight loss, intentional
Conditions present prior to admission
History of left lower lobe pneumonia hospitalized 2017
Status post diverticulitis October 2024
History of presyncope
Cardiac workup negative
Hypercholesterolemia
Family history of Hodgkin's (mother)
Plan/recommendations
At this time, patient appears to be nontoxic. Mild crackles at the left base, mildly decreased breath sounds noted
Encouragingly, she is subjectively improved with IV antibiotics, left-sided pleurisy has improved, symptoms improved. This was confirmed by at bedside
Reviewed CT findings at length with patient and CT findings
Dense lingular infiltrate with left lower lobe patchy infiltrate as well
Minimal pleural effusion noted. These findings were not present on abdominal imaging 10/16/2024 although incompletely imaged
Moving forward
Discussed with patient likelihood of infectious process.
Despite normal procalcitonin, lack of white count, fevers, chills, night sweats are concerning
Sputum culture if able
Acapella, incentive spirometry, nebulized 3% saline in a.m.
Typically, would recommend empiric antibiotic therapy for hospital-acquired pneumonia
However, patient is subjectively improved with IV ceftriaxone/azithromycin, would continue IV ceftriaxone, oral azithromycin for now. Recommend 48 to 72 hours of IV antibiotics and reassess clinically
Given that patient had left lower lobe pneumonia in 2018, I would recommend follow-up CT imaging in the short-term
Reviewed the best case scenario, patient improves objectively and subjectively, discharged on 11/22 with short-term pulmonary follow-up with chest x-ray and exam
Discussed possible need for endobronchial exam in the future
DVT prophylaxis: Recommend mechanical and pharmacological
GI prophylaxis: Not indicated
Follow loose stool, mild at this time
Reviewed with patient, at bedside, primary service, nursing
All questions answered complex decision making process
--- NOTE | 2024-11-20 10:50 | W.PN.HOSP.TC ---
Today's Communication/Plan
-
* Ceftriaxone and azithromycin.
* Oxygen if needed.
* Supportive care.
Assessment / Plan
Assessment / Plan
Assessment
Ariella Hudson, 49-year-old female, has had productive cough since last week. She developed left-sided chest pain, and was started on amoxicillin-clavulanate for a presumed diverticulitis flare. Subsequently had fever She was diagnosed with
community-acquired pneumonia and appropriately treated with amoxicillin-clavulanate and azithromycin. Her symptoms did not improve and she started experiencing breathing difficulties; could not exhale well. Admitted on 11-19-24 with community
acquired pneumonia.
Impression and plan
Community acquired bacterial pneumonia.
- Ceftriaxone and azithromycin.
- Incentive spirometry.
- Oxygen supplementation if needed.
- Albuterol and antitussives scheduled.
- Pulmonary and ID consulted by admitting team.
- Will need OP CT to rule out underlying malignancy.
Hyperlipidemia
- Continue statin.
Thromboprophylaxis
- Enoxaparin.
Code status
- Full.
Anticipated Discharge: 24 - 48 hours
Subjective/Interval History
-
Date of Service: November 20, 2024
Cough persists but she is able to breath better.
Objective Data
-
Labs:
Laboratory Results
11/20/24
05:19
WBC 5.5
Hgb 12.2
Hct 35.1 L
Plt Count 196
Vital Signs:
Vital Signs
Temp Pulse Resp BP Pulse Ox
97.8 F 86 20 118/75 97
11/20/24 07:24 11/20/24 07:24 11/20/24 07:24 11/20/24 07:24 11/20/24 07:24
Review of Systems
-
History Source: Patient
Constitutional: Reports Fatigue
EENT: Reports No Symptoms Reported
Respiratory: Reports Cough and Trouble Breathing
Cardiac: Reports No Symptoms
Abdomen/GI: Reports No Symptoms
Genitourinary: Reports No Symptoms
Musculoskeletal: Reports No Symptoms
Skin: Reports No Symptoms
Neuro: Reports No Symptoms
Endocrine: Reports No Symptoms
Hematologic / Lymphatic: Reports No Symptoms
Allergy / Immunology: Reports No Symptoms
Physical Exam
-
General: No Apparent Distress and Comfortable
HEENT: Normocephalic, Atraumatic, Moist Mucous Membranes, Anicteric and No Ptosis
Respiratory: Rhonchi (L lower lung) and Non Labored Respirations
Cardiac: Regular Rhythm and S1/S2
GI: Soft, Nontender, Nondistended and No Hepatosplenomegaly
Genito-urinary: No Costovertebral Tender
Musculoskeletal: No Clubbing, No Cyanosis and No Edema
Skin: Warm, Dry and IV Access / Catheter Site
Neuro: Awake, Alert, Oriented, No Motor Deficits and No Sensory Deficits
Hematologic / Lymphatic: No Lymphadenopathy
Psych: Calm and Intact Judgement/Insight
[2024-11-20] MEDS: CRESTOR 10 MG PO (12:07)
[2024-11-20] MEDS: ProAIR HFA INHALER 1 PUFF INH ×3 (12:14→19:25)
[2024-11-20] MEDS: SODIUM CHLORIDE 3% FOR INHALATION INH (12:18)
--- NOTE | 2024-11-20 14:17 | CON.ID ---
Consultation
-
Date/Time Consultation Requested: 11/19/24 23:00
Date/Time Consultation Performed: 11/20/24 14:21
Requesting Provider: Mavis JEAN
Performing Provider: Dr Carvajal
Reason for Consultation: PNA, failed out patient abx
Chief Complaint / Past History
Chief Complaint
shortness of breath
History of Present Illness
Ms Hudson is a 49 year old female without significant medical history who presented here 11/19 for persistent subjective fevers, chills, nonproductive cough, shortness of breath and anorexia for about 5 days. Note recent episode of diverticulitis
10/17, treated with augmentin x10 days. With the onset of dry cough, L sided chest discomort she was restarted augmentin with onset of symptoms 11/14, then yesterday called pcp for persistent symptoms and was switched to azithromycin. Of note she
reports 15 lbs of intentional weight loss over 2 months with dietary changes. Has noted some loose stools but no jessie diarrhea. No bodies on water on her property
Since arrival here she has been afebrile, bp stable, wbc initially 6.8 and today 5.5, hgb 12.2, plt 196, no L shift, d-dimer 0.6, cr 0.6, procalcitonin <0.05 last night, covid ag negative, CTA chest: with lingular pneumonia and perihilar
lymphaenopathy, azithromycin was continued and ceftriaxone was started
Past History
Additional Past Medical History:
hypercholesterolemia
childhood asthma
diverticulitis
BCC
Additional Past Surgical History:
MOHS x2
Allergy History:
dextromethorphan [From Mucinex DM] Allergy (Verified 11/19/24 10:09)
shakey and skin felt like it was on fire.
guaifenesin [From Mucinex DM] Allergy (Verified 11/19/24 10:09)
shakey and skin felt like it was on fire.
levofloxacin [From Levaquin] Allergy (Verified 11/19/24 10:09)
muscle pain
Medications Reviewed: Yes
Social History
Tobacco: Non-Smoker
Alcohol: Occasional
Drug: None
Family History
Family History: Not Pertinent
Review of Systems
Review of Systems
General: Fever and Chills
All systems: All other systems were reviewed and were negative
Vital Signs
Temp Pulse Resp BP Pulse Ox
97.8 F 86 20 118/75 97
11/20/24 07:24 11/20/24 07:24 11/20/24 07:24 11/20/24 07:24 11/20/24 12:32
Physical Exam
Physical Exam
Constitutional: No Acute Distress and Non-toxic
Cardiovascular: Regular Rate and S1/S2; Negative Murmur or Rub
Pulmonary: Clear and Symmetric; Negative Wheezes, Rales or Rhonchi
Gastrointestinal: Soft, Non Tender, Non Distended and Normal Bowel Sounds
Skin: Warm and Dry; Negative Rash or Jaundice
Neurological: Awake
Lab / Diagnostic Study Results
11/20/24 05:19
11/19/24 12:02
Total Counted 100 11/19/24 12:02
Abs Neuts (Manual) 5.0 10^3/uL (1.4-6.5) 11/19/24 12:02
Segmented Neutrophils 73 % (42-75) 11/19/24 12:02
Band Neutrophils 1 % (0-3) 11/19/24 12:02
Lymphocytes (Manual) 11 % (20-51) L 11/19/24 12:02
Eosinophils (Manual) 2 % (0-6) 11/19/24 12:02
Procalcitonin < 0.05 ng/ml (0.0-0.25) 11/19/24 18:21
Microbiology Results
Micro:
11/19/24 17:06 Influenza Types A & B (CASA) - Final
Nasal Swab Negative for Influenza A & B, NAAT
Negative results must be combined with clinical observations
and patient history.
Nucleic Acid Amplification test (NAAT)performed on the
[employer] platform.
Assessment / Plan
Lingular Pneumonia
Reported ADR to levaquin
- patient reporting clinical improvement since addition of atypical coverage 11/18 and marked improvement over the last 24 hours
- weight loss reportedly intentional, loose stool not diarrhea
- sputum culture if able to obtain
- viral causes of pneumonia also on the differential, covid and influenza ruled out
- day 3 of azithromycin can continue
- fine to continue ceftriaxone at this time; note 5 days of augmentin [employer]
- follow up with PCP for repeat CT scan of the chest
[2024-11-20 15:39] VITALS: BP 113/75
[2024-11-20] MEDS: ROCEPHIN 1000 MG IV (15:54)
[2024-11-20] MEDS: STERILE WATER FOR INJECTION 10 ML IV (15:55)
--- NOTE | 2024-11-20 17:00 | CM ---
Alert awake oriented patient who lives with her Barry who lives in a 2 story home with 1 steps to enter and bed bathroom on first. She is independent in driving and in all activities of daily living.Offered VN she declined.
No adaptive devices
Never had VN/SNF
Pharmacy [facility]
PCP Dr Mata
PLAN Home no needs
[2024-11-20] MEDS: LOVENOX 40 MG SC (17:12)
[2024-11-20] MEDS: SODIUM CHLORIDE 3% FOR INHALATION 1 VIAL INH (19:25)
[2024-11-20] MEDS: ProAIR HFA INHALER INH (23:30)
[2024-11-20 23:44] VITALS: BP 117/71
[2024-11-21] MEDS: ProAIR HFA INHALER INH ×2 (03:44→07:41)
[2024-11-21 05:46] LABS: Hematocrit 37.6 % (37.0-47.0); Hemoglobin 13.3 g/dL (12.0-16.0); Mean Corp Hgb Conc. 35.4 g/dL (33.0-37.0); Mean Corpuscular Hgb 29.6 pg (27.0-31.0); Mean Corpuscular Volume 83.7 fL (81.0-99.0); Mean Platelet Volume 10.4 fL (7.4-10.4); Platelet Count 221 10^3/uL (130-400); Red Blood Cell Count 4.49 10^6/uL (4.20-5.40); Red Cell Dist. Width 12.6 % (11.5-14.5); White Blood Cell Count 4.4 10^3/uL (4.8-10.8)
[2024-11-21 06:04] LABS: Blood Urea Nitrogen 8 mg/dl (7-17); Calcium 8.6 mg/dl (8.4-10.2); Carbon Dioxide 29 mmol/L (22-30); Chloride 102 mmol/L (98-107); Estimated Creatinine Clearance 109 ml/min; Glucose 91 mg/dl (70-99); Potassium 3.5 mmol/L (3.5-5.1); Sodium 140 mmol/L (135-145); eGFR > 60.00
[2024-11-21] MEDS: SODIUM CHLORIDE 3% FOR INHALATION 1 VIAL INH (07:41)
[2024-11-21 07:44] VITALS: BP 123/73
--- NOTE | 2024-11-21 08:44 | W.PN.PUL3 ---
Today's Communication / Plan
-
Continue airway clearance measures
Antibiotics per infectious disease
Chest exam much improved left base
Sputum culture pending
Follow-up chest x-ray in 2 to 3 weeks with pulmonary follow-up
She will require CT chest which can be determined after pulmonary follow-up
Disposition efforts
Assessment
-
49-year-old female with recent admission for acute diverticulitis, presyncope October 2024 with resolution of symptoms following Augmentin course, now presents with left chest discomfort, fevers, chills, sweats, cough and mild subjective dyspnea.
Patient was treated with 3 days of Augmentin then transition to Zithromax with no improvement, admitted with abnormal chest x-ray suggesting left-sided pneumonia confirmed on CT imaging. We are asked to comment on pulmonary process
Acute pneumonia, multi lobar pneumonia
Hospital acquired versus CAP given recent hospital stay
Left hilar adenopathy
PE study, negative for PE
Findings not present on abdominal imaging 10/16/2024 (my review), incompletely imaged
Fever/chills/night sweats
Did not respond to outpatient Augmentin/Zithromax
Recent hospital stay for diverticulitis discharged 10/17/2024
Completed 10 days of Augmentin
15 pound weight loss, intentional
Conditions present prior to admission
History of left lower lobe pneumonia hospitalized 2017
Status post diverticulitis October 2024
History of presyncope
Cardiac workup negative
Hypercholesterolemia
Family history of Hodgkin's (mother)
Plan/recommendations
At this time, patient appears to be improved objectively and subjectively
She is moving air much better at the left base, now with coarse breath sounds, no crackles
She performed airway clearance measures at the bedside with good response
Left-sided pleurisy has resolved
She is ambulating in the room without difficulty, feels much improved
Reviewed CT findings at length with patient
Dense lingular infiltrate with left lower lobe patchy infiltrate as well
Minimal pleural effusion noted. These findings were not present on abdominal imaging 10/16/2024 although incompletely imaged
Moving forward
Discussed with patient likelihood of infectious process.
Despite normal procalcitonin, lack of white count, fevers, chills, night sweats are concerning.
These symptoms have improved
Sputum culture pending
Acapella, incentive spirometry, should continue as outpatient. Reviewed technique
Presently on ceftriaxone, oral azithromycin
infectious disease correspondence reviewed
Will defer antibiotic course to infectious disease, likely okay for discharge, or regimen
She had pneumonia in 2018 in the similar area per my review
I would recommend chest x-ray in 2 to 3 weeks with pulmonary follow-up
She will require follow-up CT chest to confirm resolution
Discussed possible need for endobronchial exam in the future
DVT prophylaxis: Recommend mechanical and pharmacological
GI prophylaxis: Not indicated
Follow loose stool, denies at this time
Reviewed with patient, nursing
Reviewed with primary service
Disposition efforts
Subjective Data
-
Date of Service:
Date of Service: November 21, 2024
Subjective:
Patient has improved objectively and subjectively. She is less short of breath, less fatigue. She is ambulating in the room without difficulty. She feels like she is ready to go home. She denies any nausea, hemoptysis. She does have productive
cough, was able to provide a specimen. She is responding well to airway clearance measures
Objective Data
Data Reviewed
Vital Signs / I&O / Oxygen:
Vital Signs
Temp Pulse Resp BP Pulse Ox
97.7 F 86 18 123/73 98
11/21/24 07:44 11/21/24 07:45 11/21/24 07:45 11/21/24 07:44 11/21/24 07:45
Intake and Output
11/20/24 11/21/24 11/22/24
06:59 06:59 06:59
Intake Total 1000 / 1000
Balance 1000 / 1000
SaO2 98
Physical Exam
General: Comfortable
HEENT: Normocephalic and Anicteric
Cardiovascular: S1-S2, Regular Rhythm, Murmur (n) and Rub (n)
Respiratory: Wheeze (n), Crackles (n), Rhonchi (n), Non-Labored Respirations, Stridor (n) and Other (Mild coarse breath sounds left base, better air movement)
GI: Soft, Non Distended and Non Tender
Neurology: Awake, Alert and No Motor Deficits (Able to sit up without assistance)
Skin: Cyanosis (n), Jaundice (n) and Rash (n)
Labs/Micro/Reports
Lab Data
11/21/24 05:08
11/21/24 05:08
Microbiology
11/19/24 17:06 Nasal Swab Influenza Types A & B (CASA) - Final
Negative for Influenza A & B, NAAT
Negative results must be combined with clinical observations
and patient history.
Nucleic Acid Amplification test (NAAT)performed on the
[employer] platform.
[2024-11-21] MEDS: FLORASTOR 500 MG PO (09:22)
[2024-11-21] MEDS: TESSALON PERLES 200 MG PO ×2 (09:22→15:06)
[2024-11-21] MEDS: ZITHROMAX 500 MG PO (09:22)
--- NOTE | 2024-11-21 10:09 | W.PN.HOSP.TC ---
Today's Communication/Plan
-
* Discharge today.
Assessment / Plan
Assessment / Plan
Assessment
Ariella Hudson, 49-year-old female, has had productive cough since last week. She developed left-sided chest pain, and was started on amoxicillin-clavulanate for a presumed diverticulitis flare. Subsequently had fever She was diagnosed with
community-acquired pneumonia and appropriately treated with amoxicillin-clavulanate and azithromycin. Her symptoms did not improve and she started experiencing breathing difficulties; could not exhale well. Admitted on 11-19-24 with community
acquired pneumonia.
Impression and plan
Community acquired bacterial pneumonia.
- Ceftriaxone and azithromycin.
- Incentive spirometry.
- Oxygen supplementation if needed.
- Albuterol and antitussives scheduled.
- Pulmonary and ID consulted by admitting team.
- Will need OP CT to rule out underlying malignancy.
Hyperlipidemia
- Continue statin.
Thromboprophylaxis
- Enoxaparin.
Code status
- Full.
Anticipated Discharge: Today
Subjective/Interval History
-
Date of Service: November 21, 2024
Cough better controlled and breathing better.
Objective Data
-
Labs:
Laboratory Results
11/21/24
05:08
WBC 4.4 L
Hgb 13.3
Hct 37.6
Plt Count 221
Sodium 140
Potassium 3.5
Chloride 102
Carbon Dioxide 29
BUN 8
Creatinine 0.5 L
Glucose 91
Calcium 8.6
Vital Signs:
Vital Signs
Temp Pulse Resp BP Pulse Ox
97.7 F 86 18 123/73 98
11/21/24 07:44 11/21/24 07:45 11/21/24 07:45 11/21/24 07:44 11/21/24 07:45
I&O
11/20/24 11/21/24 11/22/24
06:59 06:59 06:59
Intake Total 1000 / 1000
Balance 1000 / 999
Review of Systems
-
History Source: Patient
Constitutional: Reports Fatigue
EENT: Reports No Symptoms Reported
Respiratory: Reports Cough and Trouble Breathing
Cardiac: Reports No Symptoms
Abdomen/GI: Reports No Symptoms
Genitourinary: Reports No Symptoms
Musculoskeletal: Reports No Symptoms
Skin: Reports No Symptoms
Neuro: Reports No Symptoms
Endocrine: Reports No Symptoms
Hematologic / Lymphatic: Reports No Symptoms
Allergy / Immunology: Reports No Symptoms
Physical Exam
-
General: No Apparent Distress and Comfortable
HEENT: Normocephalic, Atraumatic, Moist Mucous Membranes, Anicteric and No Ptosis
Respiratory: Rhonchi (L lower lung) and Non Labored Respirations
Cardiac: Regular Rhythm and S1/S2
GI: Soft, Nontender, Nondistended and No Hepatosplenomegaly
Genito-urinary: No Costovertebral Tender
Musculoskeletal: No Clubbing, No Cyanosis and No Edema
Skin: Warm, Dry and IV Access / Catheter Site
Neuro: Awake, Alert, Oriented, No Motor Deficits and No Sensory Deficits
Hematologic / Lymphatic: No Lymphadenopathy
Psych: Calm and Intact Judgement/Insight
[2024-11-21] MEDS: CRESTOR PO (12:27)
--- NOTE | 2024-11-21 12:52 | CM ---
Patient seen at bedside. Patient with no needs, and to provide transportation. CM will continue to follow for discharge planning needs.
Plan; home with no needs.
[2024-11-21] MEDS: STERILE WATER FOR INJECTION 10 ML IV (15:06)
[2024-11-21] MEDS: ROCEPHIN 1000 MG IV (15:07)
--- NOTE | 2024-11-21 15:12 | W.DCSUMMARY ---
Documented by User: Dmitry George MD, Resident 11/21/24 15:24
Discharge Summary
Discharge Data
Date of Admission: 11/19/24
Date of Discharge: 11/21/24
-
Pending Results: No
Hospital Course
Primary discharge diagnosis
* Community acquired bacterial pneumonia
* Failure of outpatient antibiotic therapy
Secondary discharge diagnoses
- Mild intermittent asthma
- Subacute cough
- Hyperlipidemia
- Diverticulosis
- History of diverticulitis
Hospital course
Ariella Hudson, 49-year-old female, was admitted on 11-19-24 with community acquired bacterial pneumonia and failure of outpatient antibiotic therapy. She was started on ceftriaxone and 500 mg of azithromycin, with supportive care with nebulizer
therapy and antitussives. She had a CT chest which showed a dense lobar pneumonia. Her symptoms improved with treatment and she was feeling much improved by the time of discharge. Vitals remained stable and within normal limits throughout her
hospital stay; did not require oxygen supplementation. She will be discharged home with antitussives, inhaler and 5 additional days of antibiotics. She was seen by pulmonology and infectious diseases. Outpatient follow-up with pulmonology after
getting the CT chest after 6 weeks post-discharge. Follow-up with primary in under 1 week.
Discharge Plan
-
Patient Disposition: Home (Routine Discharge)
Discharge Diagnosis/Procedures: Community acquired bacterial pneumonia
Condition: Good
Diet: No restrictions
Activity: No restrictions
Driving Restrictions: As prior to admission
Bathing Restrictions: None
Blood Work: CBC and BMP in 1 week
Others Tests: CT chest after 6 weeks
Referrals:
Drake Riley MD [Active] -
(2-3 weeks with CXR
with [facility])
Saroj Mata MD [Family Provider] - in less than 1 week
Prescriptions:
New
cefdinir 300 mg capsule
300 mg PO Q12H 5 Days Qty: 10 0RF
azithromycin 500 mg tablet
500 mg PO DAILY 5 Days Qty: 5 0RF
benzonatate 200 mg capsule
200 mg PO TID PRN (Reason: Cough) 30 Days Qty: 60 2RF
Continued
rosuvastatin [Crestor] 10 mg Tablet
10 mg PO HS
guar gum Packet
0.33 tbsp PO DAILY
albuterol sulfate 90 mcg/actuation Hfa Aerosol Inhaler
2 puff INHALATION R Q6HPRN PRN (Reason: sob)
Saccharomyces boulardii [Florastor] 250 mg Capsule
500 mg PO DAILY
Discontinued
amoxicillin-pot clavulanate 875-125 mg tablet
1 tab PO BID Qty: 20 0RF
azithromycin 250 mg Tablet
250 mg PO HS
Discharge Orders:
Discharge Patient (As Directed); Ordered 11/21/24
Ordered By: Dmitry George
Discharge Date and Time
Print Language: ESTONIAN

Documented by User: Kendrick Fuchs DO 11/21/24 15:28
Discharge Summary
Discharge Data
Date of Admission: 11/19/24
Date of Discharge: 11/21/24
Total time spent discharging patient (in min): 33
Discharge Plan
-
Patient Disposition: Home (Routine Discharge)
Discharge Diagnosis/Procedures: Community acquired bacterial pneumonia
Condition: Good
Diet: No restrictions
Activity: No restrictions
Driving Restrictions: As prior to admission
Bathing Restrictions: None
Blood Work: CBC and BMP in 1 week
Others Tests: CT chest after 6 weeks
Referrals:
Drake Riley MD [Active] -
(2-3 weeks with CXR
with [facility])
Saroj Mata MD [Family Provider] - in less than 1 week
Prescriptions:
New
cefdinir 300 mg capsule
300 mg PO Q12H 5 Days Qty: 10 0RF
azithromycin 500 mg tablet
500 mg PO DAILY 5 Days Qty: 5 0RF
benzonatate 200 mg capsule
200 mg PO TID PRN (Reason: Cough) 30 Days Qty: 60 2RF
Continued
rosuvastatin [Crestor] 10 mg Tablet
10 mg PO HS
guar gum Packet
0.33 tbsp PO DAILY
albuterol sulfate 90 mcg/actuation Hfa Aerosol Inhaler
2 puff INHALATION R Q6HPRN PRN (Reason: sob)
Saccharomyces boulardii [Florastor] 250 mg Capsule
500 mg PO DAILY
Discontinued
amoxicillin-pot clavulanate 875-125 mg tablet
1 tab PO BID Qty: 20 0RF
azithromycin 250 mg Tablet
250 mg PO HS
Discharge Orders:
Discharge Patient (As Directed); Ordered 11/21/24
Ordered By: Dmitry George
Discharge Date and Time
Print Language: ESTONIAN
[2024-11-21 15:46] VITALS: BP 136/88
== END 2024-11-21 15:50 | disposition home or self-care (01) | DRG 195 ==
LOC: 3 WEST ACU 17:50
PROVIDERS: Nurse Practitioner Family; Student in an Organized Health Care Education/Training Program; ADMITTING PHYSICIAN Internal Medicine; ATTENDING PHYSICIAN Internal Medicine; CONSULT PHYSICIAN Student in an Organized Health Care Education/Training Program; EMERGENCY PHYSICIAN Emergency Medicine; FAMILY PHYSICIAN Family Medicine; OTHER PHYSICIAN Internal Medicine Critical Care Medicine
DX: J18.1 Lobar pneumonia, unspecified organism (principal); J15.9 Unspecified bacterial pneumonia; E78.00 Pure hypercholesterolemia, unspecified; J45.20 Mild intermittent asthma, uncomplicated; R59.0 Localized enlarged lymph nodes; Z80.7 Family history of other malignant neoplasms of lymphoid, hematopoietic and related tissues; Z88.1 Allergy status to other antibiotic agents; Z88.8 Allergy status to other drugs, medicaments and biological substances; Z87.01 Personal history of pneumonia (recurrent); Z85.828 Personal history of other malignant neoplasm of skin; Z87.19 Personal history of other diseases of the digestive system; Z11.52 Encounter for screening for COVID-19
CPT/HCPCS: 71275; 80048; 83735; 84145; 84703; 85025; 85027; 85379; 87070; 87205; 87449; 87502; 87811; 87899; 94640; 96361; 96374; 96375; 99285; Q9967

== ENCOUNTER → 2024-12-15 14:28 | Outpatient (REF) | payer BC, SELFPAY | LOC: RAD 14:28 | PROVIDERS: ATTENDING PHYSICIAN Internal Medicine Critical Care Medicine; FAMILY PHYSICIAN Family Medicine | DX: J18.9 Pneumonia, unspecified organism (principal) | CPT/HCPCS: 71046 ==

== ENCOUNTER → 2025-01-08 15:21 | Outpatient (REF) | payer BC, SELFPAY | LOC: RAD 15:21 | PROVIDERS: ATTENDING PHYSICIAN Nurse Practitioner Family; FAMILY PHYSICIAN Family Medicine | DX: Z87.01 Personal history of pneumonia (recurrent) (principal); R59.1 Generalized enlarged lymph nodes; R93.89 Abnormal findings on diagnostic imaging of other specified body structures | CPT/HCPCS: 71260; Q9967 ==

== ENCOUNTER → 2025-06-17 18:38 | Outpatient (REF) | payer BC, SELFPAY | LOC: WDC 18:38 | PROVIDERS: ATTENDING PHYSICIAN Obstetrics & Gynecology; FAMILY PHYSICIAN Family Medicine | DX: Z12.31 Encounter for screening mammogram for malignant neoplasm of breast (principal) | CPT/HCPCS: 77063; 77067 ==